=== PATIENT | female | born 1935 | race Caucasian/White ===

== ENCOUNTER 2018-06-11 17:26 | Inpatient (IN) | payer MEDICARE ==
[~2018-06-11] VITALS: Ht 165.1 cm; Wt 60.8 kg
--- NOTE | ~2018-06-11 | OP ---
PATIENT NAME: BRIAN SUAZO MEDICAL RECORD: [id number] :35 LOCATION:[id number] ADMISSION DATE:06/11/18 SURGEON: GILBERTO VASQUEZ DO DATE OF OPERATION: 06/12/2018 PROCEDURE PERFORMED: Right hip intramedullary nail. PREOPERATIVE DIAGNOSIS: Displaced right intertrochanteric fracture. POSTOPERATIVE DIAGNOSIS: Displaced right intertrochanteric fracture. INDICATIONS: Ms. Suazo is an 83-year-old female who is on hospice for cancer, who fell yesterday, has a small brain bleed and had a right intertrochanteric hip fracture. She has been brought to the hospital. The brain bleed they said seemed to be stable. She is on hospice for the cancer. I had a long discussion with her son who is her power of insurance attorney about fixing the fracture versus not fixing the fracture. He decided he would like it fixed for palliative care. This was discussed at length with him including the fact that she may pass after this fracture, but he wanted her to be comfortable, so we fixed the fracture. The risks are infection, bleeding, and he was okay with all of that and he signed the consent. SURGEON: Gilberto Vasquez DO DESCRIPTION OF PROCEDURE: The patient was taken to the operative suite, laid in supine position, placed over on the Prospect table. Fracture was then reduced under x-ray. Once fracture was reduced, the right hip was prepped and draped in sterile fashion. A timeout was performed and everyone was in agreement with correct side, site, patient and procedure. She had 2 grams Ancef preoperatively. Once Ancef was given, the incision began just proximal to the greater trochanter. Starting point was obtained first time and appeared to be kicked up anteriorly. Second time the starting point was obtained and the opening reamer was used and a guide wire was placed down the femoral canal. Then, the short nail 11 x 180 mm nail with 130 degree nail was put down the femur, confirmed on AP and lateral. Then, a 10.5 x 90 lag screw was placed. An incision on the lateral side of the hip and then AR screw, 80 mm in length was put in above that with good position of each screw on the AP and lateral and then a 5.0 x 38 mm was put in the more distal static screw hole. The jig was then removed after the locking mechanism was locked on the nail, locking down the top 2 screws. The jig was then removed and the wounds were thoroughly irrigated. The IT band was closed most proximal incision with #1 Vicryl and then the skin was closed with 2-0 Vicryl and 4-0 Monocryl, it was ran on the skin of the proximal incision and horizontal mattress on the 2 distal wounds. Steri-Strips were put on the more proximal and then Telfa, Tegaderm were placed over each of the incisions. The patient was then awakened and taken to recovery in stable condition. BLOOD LOSS: Approximately 100 mL. COMPLICATIONS: None. TRANSINT:[id number] Voice Confirmation ID: [id number] DOCUMENT ID: [id number] OPERATIVE REPORT [id number] BRIAN SUAZO MICHAEL D, DO at 0722 CC: [id number] DICTATION DATE: 06/12/18 1356 APPLIQUER: 06/12/18 2335 ADM IN [place] [id number] [place] [address]
[2018-06-11] MEDS ORDERED: FENTANYL PATCH TOPICAL (17:33)
[2018-06-11] MEDS ORDERED: IMODIUM2 MG PO (17:33)
[2018-06-11] MEDS ORDERED: ACETAMINOPHEN325 MG PO (17:34)
[2018-06-11] MEDS ORDERED: MIRALAX17 GM PO (17:34)
[2018-06-11] MEDS ORDERED: PROZAC40 MG PO (17:34)
[2018-06-11 18:27] LABS: HEMATOCRIT 30.2 % (36.0-48.0); HEMOGLOBIN 9.7 g/dL (12-16); MCH 28.3 pg (26.0-34.0); MCHC 32.1 g/dL (31.0-37.0); MEAN PLATELET VOLUME 7.8 fL (7.4-10.4); PLATELET COUNT 158 10x3/uL (130-400); RBC 3.43 10x6/uL (4.00-5.40); RDW 14.7 % (11.5-14.5); WBC 48.7 10x3/uL (4.8-10.8)
[2018-06-11 18:37] LABS: INR 1.03 (0.85-1.17); PROTIME 13.1 SECONDS (11.6-15.0)
[2018-06-11 18:42] LABS: ALBUMIN 2.5 g/dL (3.4-5.0); ALKALINE PHOSPHATASE 113 U/L (46-116); ALT (SGPT) 30 U/L (10-68); BILIRUBIN - TOTAL 0.37 mg/dL (0.2-1.3); CALC OSMOLALITY 268 mosm/kg (275-300); CALCIUM 8.8 mg/dL (8.5-10.1); CARBON DIOXIDE 28.2 mmol/L (21.0-32.0); CHLORIDE - SERUM 98 mmol/L (98-107); CREATININE - SERUM 0.7 mg/dL (0.6-1.3); GLUCOSE 143 mg/dL (74-106); POTASSIUM - SERUM 3.8 mmol/L (3.5-5.1); SODIUM 133 mmol/L (136-145); UREA NITROGEN 15 mg/dL (7-18); eGFR NON AFRICAN AMERICAN 85 mL/min (90-120)
[2018-06-11 19:29] LABS: ELLIPTOCYTES 1+; LYMPHOCYTES 2 % (15-50); NEUTROPHILS 95 % (40-80); PLATELET ESTIMATE NORMAL; POIKILOCYTOSIS OCC
[2018-06-11 23:42] VITALS: BP 140/65; BMI 22.3
[2018-06-12 08:48] VITALS: BP 133/62
[2018-06-12 15:05] VITALS: BP 110/75
[2018-06-12 16:39] VITALS: BP 145/71
[2018-06-12 20:58] LABS: APPEARANCE HAZY (CLEAR); BILIRUBIN NEGATIVE (NEGATIVE); COLOR BROWN (YELLOW); GLUCOSE NEGATIVE (NEGATIVE); KETONE SMALL mg/dL (NEGATIVE); NITRITE NEGATIVE (NEGATIVE); PROTEIN 1+ mg/dL (NEGATIVE); UROBILINOGEN NORMAL (NORMAL)
[2018-06-12 21:00] LABS: RED CELLS - URINE 25-50 /hpf (0-5)
[2018-06-12 21:02] LABS: BACTERIA MANY /hpf (NONE SEEN)
[2018-06-12 21:03] LABS: MUCUS <1+ /lpf (NONE SEEN)
[2018-06-12 22:11] VITALS: BP 115/58
[2018-06-13 06:54] LABS: ANION GAP 14.4 mmol/L (8-16); CALCIUM 7.9 mg/dL (8.5-10.1); CARBON DIOXIDE 25.9 mmol/L (21.0-32.0); POTASSIUM - SERUM 4.3 mmol/L (3.5-5.1)
[2018-06-13 07:12] LABS: WBC 57.9 10x3/uL (4.8-10.8)
[2018-06-13 07:13] LABS: HEMATOCRIT 22.5 % (36.0-48.0); HEMOGLOBIN 7.2 g/dL (12-16); MCH 28.8 pg (26.0-34.0); RDW 15.1 % (11.5-14.5)
[2018-06-13 07:14] LABS: BASOPHILS 0.2 % (0-2); EOSINOPHILS 0 % (0-7); IMMATURE GRANULOCYTES 3.5 % (0-5); MEAN PLATELET VOLUME 8.6 fL (7.4-10.4); MONOCYTES 3.6 % (2-11); NEUTROPHILS 88.7 % (40-80); PLATELET COUNT 279 10x3/uL (130-400)
[2018-06-13 08:08] VITALS: BP 116/60
[2018-06-13 12:12] VITALS: BP 127/76
[2018-06-13 13:23] VITALS: Ht 165.1 cm; Wt 60.8 kg
[2018-06-13 16:30] VITALS: BP 122/43
[2018-06-13 20:00] VITALS: BP 109/36
[2018-06-14 05:33] LABS: CALC OSMOLALITY 267 mosm/kg (275-300); CALCIUM 7.6 mg/dL (8.5-10.1); CARBON DIOXIDE 27.8 mmol/L (21.0-32.0); CHLORIDE - SERUM 96 mmol/L (98-107); GLUCOSE 99 mg/dL (74-106); POTASSIUM - SERUM 4.9 mmol/L (3.5-5.1); SODIUM 130 mmol/L (136-145); UREA NITROGEN 32 mg/dL (7-18); eGFR NON AFRICAN AMERICAN 85 mL/min (90-120)
[2018-06-14 05:36] LABS: CREATININE - SERUM 0.7 mg/dL (0.6-1.3)
[2018-06-14 06:20] LABS: RBC 1.94 10x6/uL (4.00-5.40); WBC 44.9 10x3/uL (4.8-10.8)
[2018-06-14 06:22] LABS: BASOPHILS 0.1 % (0-2); EOSINOPHILS 0 % (0-7); HEMATOCRIT 17.3 % (36.0-48.0); HEMOGLOBIN 5.7 g/dL (12-16); IMMATURE GRANULOCYTES 3.4 % (0-5); LYMPHOCYTES 2.5 % (15-50); MCH 29.4 pg (26.0-34.0); MCHC 32.9 g/dL (31.0-37.0); MCV 89.2 fL (80.0-100.0); MEAN PLATELET VOLUME 8.5 fL (7.4-10.4); MONOCYTES 2.8 % (2-11); NEUTROPHILS 91.2 % (40-80); PLATELET COUNT 145 10x3/uL (130-400); RDW 14.9 % (11.5-14.5)
[2018-06-14 09:39] VITALS: BP 116/38
[2018-06-14 20:00] VITALS: BP 135/61
[2018-06-15 04:00] VITALS: BP 130/63
[2018-06-15 07:57] LABS: BASOPHILS 0.1 % (0-2); CALC OSMOLALITY 261 mosm/kg (275-300); CARBON DIOXIDE 27.7 mmol/L (21.0-32.0); CHLORIDE - SERUM 96 mmol/L (98-107); CREATININE - SERUM 0.6 mg/dL (0.6-1.3); EOSINOPHILS 0 % (0-7); GLUCOSE 97 mg/dL (74-106); HEMATOCRIT 27.6 % (36.0-48.0); HEMOGLOBIN 9.4 g/dL (12-16); IMMATURE GRANULOCYTES 4.5 % (0-5); LYMPHOCYTES 1.9 % (15-50); MCH 30.3 pg (26.0-34.0); MCHC 34.1 g/dL (31.0-37.0); MEAN PLATELET VOLUME 8.2 fL (7.4-10.4); MONOCYTES 3.7 % (2-11); NEUTROPHILS 89.8 % (40-80); PLATELET COUNT 120 10x3/uL (130-400); POTASSIUM - SERUM 4.6 mmol/L (3.5-5.1); RDW 14.2 % (11.5-14.5); SODIUM 129 mmol/L (136-145); WBC 47.2 10x3/uL (4.8-10.8); eGFR NON AFRICAN AMERICAN > 90 mL/min (90-120)
[2018-06-15 07:58] LABS: UREA NITROGEN 20 mg/dL (7-18)
[2018-06-15 08:46] VITALS: BP 129/59
[2018-06-15] MEDS ORDERED: FLORAJEN3 CAPS460 MG PO (09:39)
[2018-06-15] MEDS ORDERED: BACTRIM 400/80 MG TA PO (09:40)
[2018-06-15] MEDS ORDERED: PREDNISONE10 MG PO (10:53)
== END 2018-06-15 13:43 | DRG 999 ==
LOC: D.ER 17:26 → D.EDHOLD 19:41 → D.MS 22:00
PROVIDERS: Emergency Medicine; Internal Medicine Nephrology; Orthopaedic Surgery
PROC: 0QH636Z Insertion of Intramedullary Internal Fixation Device into Right Upper Femur, Percutaneous Approach (ICD-10-PCS; principal; 2018-06-12 16:00)
DX: S72.141A Displaced intertrochanteric fracture of right femur, initial encounter for closed fracture (principal); S06.2X9A Diffuse traumatic brain injury with loss of consciousness of unspecified duration, initial encounter; C79.9 Secondary malignant neoplasm of unspecified site; E87.1 Hypo-osmolality and hyponatremia; W19.XXXA Unspecified fall, initial encounter; Z51.5 Encounter for palliative care; Y92.129 Unspecified place in nursing home as the place of occurrence of the external cause; C52 Malignant neoplasm of vagina; F03.90 Unspecified dementia, unspecified severity, without behavioral disturbance, psychotic disturbance, mood disturbance, and anxiety; F44.4 Conversion disorder with motor symptom or deficit; I10 Essential (primary) hypertension; I25.10 Atherosclerotic heart disease of native coronary artery without angina pectoris